=== PATIENT | male | born 1995 | race Hispanic/Latino ===

== ENCOUNTER 2021-03-30 11:13 | Emergency (ER) | payer SELFPAY ==
[2021-03-30] MEDS ORDERED: NA CHLORIDE 0.9% 1,000 ML ONE (12:06)
[2021-03-30] MEDS ORDERED: ONDANSETRON 4 MG/2 ML VIAL ONE (12:06)
[2021-03-30 12:10] LABS: Absolute Lymphocytes (CBC) 1.3 K/uL (0.7-4.9); Basophils % 0.3 % (0-1.3); Hematocrit 55.1 % (39.6-49.0); Lymphocytes % 7.3 % (15.3-44.8); RBC Red Blood Cell Count 5.69 M/uL (4.33-5.43)
[2021-03-30 12:12] LABS: Protime INR 1.06
[2021-03-30] MEDS ORDERED: MORPHINE 4 MG/ML SYR ONE (12:29)
[2021-03-30] MEDS ORDERED: DIPHENHYDRAMINE 50 MG/ML VIAL ONE (12:29)
[2021-03-30] MEDS ORDERED: METOCLOPRAMIDE 10 MG/2mL INJ ONE (12:29)
[2021-03-30 12:34] LABS: ALT/SGPT 17 U/L (12-78); AST/SGOT 7 U/L (15-37); Albumin 5.1 g/dL (3.4-5.0); Alkaline Phosphatase 85 U/L (45-117); BUN Blood Urea Nitrogen 14 mg/dL (7-18); Bicarbonate 23 mmol/L (21-32); Bilirubin Direct 0.2 mg/dL (0-0.2); Glucose Level 141 mg/dL (74-106); Lipase 36 U/L (73-393); Magnesium 2.1 mg/dL (1.8-2.4); NT PRO-BNP 17 pg/mL (<125); Potassium 3.7 mmol/L (3.5-5.1); Protein, Total 9.2 g/dL (6.4-8.2); Sodium Level 138 mmol/L (136-145); Troponin (Emerg Dept Use Only) < 0.02 ng/mL (0.0-0.045)
[2021-03-30 12:49] LABS: Blood Morphology Comment NOT SEEN (NOT SEEN); Platelet Estimate ADEQ; White Blood Cell Scan OK (OK)
--- NOTE | 2021-03-30 13:26 | RAD REPORT ---
EXAM DESCRIPTION: Karen Single View03/30/2021 12:39 pm CLINICAL HISTORY: Chest pain COMPARISON: none FINDINGS: Calcified granuloma right lung. The lungs appear clear of acute infiltrate. The heart is normal size IMPRESSION: No acute abnormalities displayed
--- NOTE | 2021-03-30 13:26 | RAD REPORT ---
EXAM DESCRIPTION: CT - Angio Aorta For Dissection - 03/30/2021 1:08 pm CLINICAL HISTORY: . Chest and abdominal pain COMPARISON: None TECHNIQUE: Computed tomography angiography of the chest, abdomen pelvis were obtained. 100 cc Isovue 370 was administered intravenously. Coronal and sagittal reconstruction were performed. MIP 3D reconstruction was performed All CT scans are performed using dose optimization technique as appropriate and may include automated exposure control or mA/KV adjustment according to patient size. FINDINGS: Images are degraded by patient motion artifact An aortic dissection is not seen. An aortic aneurysm is not displayed. The celiac, SMA and CAROL are patent . A lung consolidation is not present. A pericardial effusion is not seen. A pleural effusion is not n oted. The liver,spleen, pancreas adrenals kidneys demonstrate no significant abnormality. There no evidence diverticulitis. No ascites is noted. Normal appendix Right lung calcified granuloma IMPRESSION: Some of the images are degraded by patient motion artifact No evidence of an aortic dissection.
--- NOTE | 2021-03-30 14:48 | EDPHYS ---
Physician Documentation [facility] Name: Zander Pinto Age: 25 yrs Sex: Male : 1995 Arrival Date: 03/30/2021 Time: 11:15 Bed 13 Private MD: ED Physician Figueroa Kim HPI: 03/30 11:57 This 25 yrs old Male presents to ER via Ambulatory with complaints of Chest jmm Pain, Vomiting. 11:57 The patient or guardian reports chest pain that is located primarily in the substernal m area. The pain does not radiate. The chest pain is described as aching, sharp. Duration: The patient or guardian reports a single episode. Modifying factors: The symptoms are alleviated by nothing. the symptoms are aggravated by nothing. This is a 25 year old male with a history of neurofibromatosis that presents to the ED with complaints of abdominal pain beginning approx 2 days ago with vomiting, developing into chest pain. . 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 - Social history:: Smoking status: Patient reports the use of cigarette tobacco products, denies chronic smoking, but will smoke occasionally. ROS: 11:57 Constitutional: Negative for fever, chills, and weight loss. jmm 11:57 Cardiovascular: Positive for chest pain. 11:57 Abdomen/GI: Positive for abdominal pain. 11:57 All other systems are negative. Exam: 11:57 Constitutional: This is a well developed, well nourished patient who is awake, alert, jmm and in no acute distress. Head/Face: atraumatic. Eyes: EOMI, no conjunctival erythema appreciated ENT: Moist Mucus Membranes Neck: Trachea midline, Supple Chest/axilla: Normal chest wall appearance and motion. Cardiovascular: Regular rate and rhythm. No edema appreciated Respiratory: Normal respirations, no respiratory distress appreciated 11:57 Back: Normal ROM Skin: General appearance color normal MS/ Extremity: Moves all extremities, no obvious deformities appreciated, no edema noted to the lower extremities 11:57 Abdomen/GI: Inspection: abdomen appears normal, Bowel sounds: normal, Palpation: soft, mild abdominal tenderness, in all quadrants. 11:57 Neuro: Orientation: is normal, Mentation: is normal, Memory: is normal. 11:57 Psych: Behavior/mood is anxious. Vital Signs: 11:21 BP 136 / 91; Pulse 106; Resp 19 S; Temp 97.6(TE); Pulse Ox 98% on R/A; Weight 68.04 kg jd3 (R); Height 5 ft. 6 in. (167.64 cm) (R); Pain 10/10; 12:13 BP 147 / 94 LA Sitting (auto/reg); Pulse 55; Resp 18; Temp 97.9(O); Pulse Ox 100% ; tr6 11:21 Body Mass Index 24.21 (68.04 kg, 167.64 cm) jd3 MDM: 11:26 Patient medically screened. davon 14:44 Data reviewed: vital signs, nurses notes. Counseling: I had a detailed discussion with carl the patient and/or guardian regarding: the historical points, exam findings, and any diagnostic results supporting the discharge/admit diagnosis, lab results, radiology results, the need for outpatient follow up, to return to the emergency department if symptoms worsen or persist or if there are any questions or concerns that arise at home. ED course: Patient states feeling better. Able to tolerate PO in the ED. Patient is advised to follow up with PCP and otherwise given strict return precautions. Patient understood and agrees with the plan of care. . 03/30 11:49 Order name: Basic Metabolic Panel [facility] 03/30 11:49 Order name: CBC with Diff [facility] 03/30 11:49 Order name: LFT's [facility] 03/30 11:49 Order name: Magnesium [facility] 03/30 11:49 Order name: NT PRO-BNP [facility] 03/30 11:49 Order name: PT-INR; Complete Time: 12:33 [facility] 03/30 11:49 Order name: Troponin (emerg Dept Use Only); Complete Time: 13:09 [facility] 03/30 11:49 Order name: Lipase; Complete Time: 13:09 [facility] 03/30 11:50 Order name: Basic Metabolic Panel; Complete Time: 13:09 [facility] 03/30 11:50 Order name: CBC with Automated Diff; Complete Time: 13:09 [facility] 03/30 11:50 Order name: Liver (Hepatic) Function; Complete Time: 13:09 [facility] 03/30 11:50 Order name: Magnesium; Complete Time: 13:09 [facility] 03/30 11:50 Order name: NT PRO-BNP; Complete Time: 13:09 [facility] 03/30 12:16 Order name: CBC Smear Scan; Complete Time: 13:09 [facility] 03/30 11:49 Order name: XRAY Chest (1 view); Complete Time: 13:29 [facility] 03/30 11:49 Order name: EKG; Complete Time: 11:50 [facility] 03/30 11:49 Order name: Cardiac monitoring; Complete Time: 12:04 [facility] 03/30 11:49 Order name: EKG - Nurse/Tech; Complete Time: 14:06 [facility] 03/30 11:49 Order name: IV Saline Lock; Complete Time: 12:04 [facility] 03/30 11:49 Order name: Labs collected and sent; Complete Time: 12:04 [facility] 03/30 11:49 Order name: O2 Per Protocol; Complete Time: 12:04 [facility] 03/30 11:49 Order name: O2 Sat Monitoring; Complete Time: 12:04 [facility] 03/30 11:51 Order name: CT Aorta for Dissection; Complete Time: 13:29 jm Administered Medications: 12:03 Drug: NS 0.9% 1000 ml Route: IV; Rate: 1 bolus; Site: right forearm; tr6 12:03 Drug: Zofran (Ondansetron) 4 mg Route: IVP; Site: right forearm; tr6 12:07 Drug: morphine 4 mg Route: IVP; Site: right forearm; tr6 12:13 Drug: Reglan (metoCLOPramide) 20 mg Route: IVP; Site: right forearm; tr6 12:13 Drug: diphenhydrAMINE 25 mg Route: IVP; Site: right forearm; tr6 Disposition: 03/31 08:01 Co-signature as Attending Physician, Figueroa Kim MD I agree with the assessment and davon plan of care. Disposition: 03/30/21 14:47 Discharged to Home. Impression: Vomiting. - Condition is Stable. - Discharge Instructions: Nausea and Vomiting, Adult. - Prescriptions for Zofran ODT 4 mg Oral tablet,disintegrating - place 1 tablet by TRANSLINGUAL route every 4-6 hours; 20 tablet. promethazine 25 mg Rectal suppository - insert 1 suppository by RECTAL route 2 times per day; 12 suppository. Bentyl 20 mg Oral Tablet - take 2 tablet by ORAL route every 6 hours As needed; 40 tablet. Pepcid 20 mg Oral Tablet - take 1 tablet by ORAL route every 12 hours for 10 days; 20 tablet. - Medication Reconciliation Form, Thank You Letter, Antibiotic Education, Prescription Opioid Use form. - Follow up: Private Physician; When: 2 - 3 days; Reason: Recheck today's complaints, Continuance of care, Re-evaluation by your physician. Signatures: Dispatcher [employer] EDMS Figueroa Kim MD MD cha Mickail, Joel, PA PA jmm Davies, Jonathon RN RN Lucrecia James RN RN tr6 Corrections: (The following items were deleted from the chart) 03/30 14:57 14:47 03/30/2021 14:47 Discharged to Home. Impression: Vomiting. Condition is Stable. tr6 Forms are Medication Reconciliation Form, Thank You Letter, Antibiotic Education, Prescription Opioid Use. Follow up: Private Physician; When: 2 - 3 days; Reason: Recheck today's complaints, Continuance of care, Re-evaluation by your physician. carl
--- NOTE | 2021-03-30 14:48 | ER ---
Nurse's Notes [facility] Name: Zander Pinto Age: 25 yrs Sex: Male : 1995 Arrival Date: 03/30/2021 Time: 11:15 Bed 13 Private MD: Diagnosis: Vomiting Presentation: 03/30 11:19 Chief complaint: Patient states: "stomach pain and vomiting X a couple of days.". jd3 Coronavirus screen: At this time, the client does not indicate any symptoms associated with coronavirus-19. Ebola Screen: Patient negative for fever greater than or equal to 101.5 degrees Fahrenheit, and additional compatible Ebola Virus Disease symptoms. Initial Sepsis Screen: Does the patient meet any 2 criteria? No. Patient's initial sepsis screen is negative. Does the patient have a suspected source of infection? No. Patient's initial sepsis screen is negative. Risk Assessment: Do you want to hurt yourself or someone else? Patient reports no desire to harm self or others. Onset of symptoms was March 28, 2021. 11:19 Method Of Arrival: Ambulatory [facility] 11:19 Acuity: MARY ELLEN 3 jd3 Triage Assessment: 12:05 General: Appears. 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 - Social history:: Smoking status: Patient reports the use of cigarette tobacco products, denies chronic smoking, but will smoke occasionally. Screenin:04 Abuse screen: Denies threats or abuse. Denies injuries from another. Nutritional tr6 screening: No deficits noted. Tuberculosis screening: No symptoms or risk factors identified. Fall Risk None identified. Assessment: 12:05 General: Appears distressed, uncomfortable, slender, Behavior is appropriate for age, tr6 Reports feeling ill for fatigue for 2-3 days. Pain: Complains of pain in abdominal pain Pain radiates to radiates to back Pain began 2-3 days ago. Neuro: No deficits noted. Cardiovascular: No deficits noted. Respiratory: No deficits noted. GI: Abdomen is flat, Pt is actively vomiting Abdomen is tender to palpation in epigastric region. : No deficits noted. EENT: No deficits noted. Derm: Skin is clammy, diaphoretic, Skin is pale. Musculoskeletal: No deficits noted. Reports feeling weak. Vital Signs: 11:21 BP 136 / 91; Pulse 106; Resp 19 S; Temp 97.6(TE); Pulse Ox 98% on R/A; Weight 68.04 kg jd3 (R); Height 5 ft. 6 in. (167.64 cm) (R); Pain 10/10; 12:13 BP 147 / 94 LA Sitting (auto/reg); Pulse 55; Resp 18; Temp 97.9(O); Pulse Ox 100% ; tr6 11:21 Body Mass Index 24.21 (68.04 kg, 167.64 cm) jd3 ED Course: 11:15 Patient arrived in ED. rg4 11:19 Triage completed. jd3 11:22 Arm band placed on. jd3 11:25 Misael Her PA is PHCP. [facility] 11:25 Figueroa Kim MD is Attending Physician. [facility] 12:02 Lucrecia Koo, DERIK is Primary Nurse. tr6 12:04 Patient has correct armband on for positive identification. Bed in low position. Call tr6 light in reach. Side rails up X2. cardiac monitor technician on. Pulse ox on. NIBP on. Door closed. Noise minimized. Visitors limited. Lights dimmed. Warm blanket given. Diet: Patient is NPO. 12:04 Inserted saline lock: 18 gauge in right forearm, using aseptic technique. Blood tr6 collected. 12:04 No provider procedures requiring assistance completed. Patient maintains SpO2 tr6 saturation greater than 95% on room air. 12:39 XRAY Chest (1 view) In Process Unspecified. EDMS 13:08 CT Aorta for Dissection In Process Unspecified. EDMS 14:57 IV discontinued, intact, bleeding controlled, No redness/swelling at site. Pressure tr6 dressing applied. Administered Medications: 12:03 Drug: NS 0.9% 1000 ml Route: IV; Rate: 1 bolus; Site: right forearm; tr6 12:03 Drug: Zofran (Ondansetron) 4 mg Route: IVP; Site: right forearm; tr6 12:07 Drug: morphine 4 mg Route: IVP; Site: right forearm; tr6 12:13 Drug: Reglan (metoCLOPramide) 20 mg Route: IVP; Site: right forearm; tr6 12:13 Drug: diphenhydrAMINE 25 mg Route: IVP; Site: right forearm; tr6 Outcome: 14:47 Discharge ordered by . carl 14:57 Discharged to home ambulatory. tr6 14:57 Condition: improved 14:57 Discharge instructions given to Instructed on discharge instructions, follow up and referral plans. medication usage, Demonstrated understanding of instructions, follow-up care, medications, Prescriptions given X 3, 4. 14:57 Patient left the ED. tr6 Signatures: Dispatcher [employer] EDMS Misael Her PA PA jmm Garcia, Rubi rg4 Rod Becker RN RN Lucrecia James RN RN tr6 Corrections: (The following items were deleted from the chart) 11:22 11:21 Pulse 106bpm; Resp 19bpm; Spontaneous; Pulse Ox 98% RA; Temp 97.6F Temporal; jd3 68.04 kg Reported; Height 5 ft. 6 in. Reported; BMI: 24.2; Pain 07/25; jd3
[2021-03-30 15:26] VITALS: BP 147/94; TEMP 97.9; O2SAT 100
--- NOTE | 2021-03-31 07:39 | EKG ---
Test Date: 2021-03-30 Test Time: 12:38:32 Senior Director Of Strategy: JIMENA MEASUREMENT RESULTS: Intervals: Rate: 73 MO: 144 QRSD: 90 QT: 420 QTc: 462 [place]: P: 79 MO: 144 QRS: 91 T: 60 INTERPRETIVE STATEMENTS: Sinus rhythm with marked sinus arrhythmia Possible Left atrial enlargement Rightward axis ST elevation, consider early repolarization, pericarditis, or injury Nonspecific ST and T wave abnormality Prolonged QT Abnormal ECG No previous ECG available for comparison Electronically Signed On 03-31-21 07:35:58 CDT by Keshav Logan
== END 2021-03-30 14:57 | disposition home or self-care (01) ==
LOC: ER 11:13
DX: R11.2 Nausea with vomiting, unspecified (principal); F41.9 Anxiety disorder, unspecified; F17.210 Nicotine dependence, cigarettes, uncomplicated
CPT/HCPCS: 36415; 71045; 71275; 74175; 80048; 80076; 83690; 83735; 83880; 84484; 85025; 85610; 93005; 96374; 96375; 99285; J1200; J2405; J2765; J7030; Q9967